=== PATIENT | female | born 1985 | race Caucasian/White ===

== ENCOUNTER 2017-03-15 08:15 | Emergency (ER) | payer MEDICARE, MEDICAID ==
[~2017-03-15] VITALS: Ht 149.9 cm; Wt 61.8 kg
[2017-03-15 08:22] VITALS: BP 133/86
[2017-03-15] MEDS ORDERED: METF500T PO (09:06)
== END 2017-03-15 09:16 | disposition home or self-care (01) ==
LOC: ER 08:16
DX: Z76.0 Encounter for issue of repeat prescription (principal)
CPT/HCPCS: 99283

== ENCOUNTER 2017-04-11 07:48 | Emergency (ER) | payer MEDICARE, MEDICAID ==
[~2017-04-11] VITALS: Ht 147.3 cm; Wt 62.1 kg
[~2017-04-11 07:48] MED LIST: METF500T PO
[2017-04-11] MEDS ORDERED: METF500T PO (08:03)
[2017-04-11 09:25] VITALS: BP 133/87
== END 2017-04-11 08:54 | disposition home or self-care (01) ==
LOC: ER 07:49
DX: M25.562 Pain in left knee (principal); E11.9 Type 2 diabetes mellitus without complications; Z79.84 Long term (current) use of oral hypoglycemic drugs
CPT/HCPCS: 73560; 99284